=== PATIENT | male | born 1950 | race Caucasian/White ===

== ENCOUNTER 2018-07-10 14:50 | Observation (INO) | payer OTHER, MEDICARE ==
[~2018-07-10] VITALS: Ht 177.8 cm; Wt 83.9 kg
[2018-07-10 15:29] LABS: ABSOLUTE BASOPHIL COUNT 0 /CUMM (0.0-0.2); ABSOLUTE EOSINOPHIL COUNT 0.1 /CUMM (0.0-0.7); ABSOLUTE GRANULOCYTE CT 5.6 /CUMM (1.4-6.5); ABSOLUTE LYMPH COUNT 0.9 /CUMM (1.2-3.4); ABSOLUTE MONOCYTE COUNT 0.3 /CUMM (0.10-0.60); BASOPHIL % 0.2 % (0.0-2.0); EOSINOPHIL % 1.7 % (0-5); GRANULOCYTE % 80.3 % (42.2-75.2); HEMATOCRIT 38.3 % (42-52); MEAN CORPUSCULAR HGB 34.2 PG (27.0-31.0); MEAN CORPUSCULAR VOLUME 97.7 FL (80.0-94.0); MEAN PLATELET VOLUME 8.3 FL (7.4-10.4); PLATELET COUNT 189 /CUMM (130-400); RBC DISTRIBUTION WIDTH 12.6 % (11.5-14.5); RED BLOOD CELL CT 3.92 /CUMM (4.70-6.10)
--- NOTE | 2018-07-10 15:40 | ED AMS/SEIZURE/WEAK/DIZZY ---
History of Present Illness General Chief Complaint: General Adult Stated Complaint: LOW HEART RATE , DIZZY X 2 DAYS Source: patient, family Exam Limitations: no limitations Vital Signs & Intake/Output Vital Signs & Intake/Output Vital Signs Date Time Temp Pulse Resp B/P B/P Pulse O2 O2 Flow FiO2 Mean Ox Delivery Rate 07/10 1955 98.4 49 16 163/80 99 Room Air 07/10 1712 50 16 147/78 97 Room Air 07/10 1652 58 16 99 Room Air 07/10 1613 56 120/84 07/10 1534 Room Air 07/10 1503 98.8 60 16 128/78 97 Room Air Allergies Coded Allergies: No Known Allergies (07/10/18) Reconcile Medications Aspirin (Aspirin*) 81 MG TAB.CHEW 1 TAB PO DAILY HEART HEALTH (Reported) Calcium Carbonate/Vitamin D3 (Caltrate 600 + D Tablet) 600 MG-800 TABLET 1 TAB PO DAILY SUPPLEMENT (Reported) Cholecalciferol (Vitamin D3) (Vitamin D3) 400 UNIT TABLET 1 TAB PO DAILY VITAMIN SUPPORT (Reported) Inulin/Chromium Picolinate (Fiber Gummies) 2 GRAM-100 MCG TAB.CHEW 1 CAP PO DAILY SUPPLEMENT (Reported) Losartan (Cozaar) 100 MG TABLET 1 TAB PO DAILY HEART (Reported) Multivit-Min/FA/Lycopen/Lutein (Centrum Silver Tablet) 0.4 MG-300 MCG-250 MCG TABLET 1 TAB PO DAILY VITAMIN SUPPORT (Reported) Oxybutynin Chloride (Ditropan XL) 10 MG TAB.ER.24 1 TAB PO DAILY UNKNOWN ( Reported) Tamsulosin HCl (Flomax) 0.4 MG CAP.ER.24H 1 CAP PO DAILY PROSTATE (Reported) Triage Note: PT STATES THAT HE WAS GOLFING YESTERDAY WHEN HIS LEGS BECAME WEEK AND HE FELT LIKE HE WAS GOING TO PASS OUT, STATES THAT HR WAS AROUND 54 AND BP 100/50. STATES THAT HE WAS DRINKING PLENTY OF FLUIDS, WOKE THIS AM AND STILL FELT LIGHT HEADED AND HR WAS 47 AND SKIPPING BEATS. DENIES CP/SOB Triage Nurses Notes Reviewed? yes HPI: Patient presents for evaluation of weakness and dizziness that began over yesterday and today. The patient is currently in a preoperative evaluation (he will be having a cystoscopy). He was evaluated by his nurse practitioner at his primary care doctor's office 2 days ago when his heart rate was noted to be in the mid 50s. He felt particularly weak and dizzy yesterday, truncating his usual recreational golfed only 7 holes. Patient's heart rate and blood pressure seemed relatively stable then. The patient felt particularly lightheaded today and his heart rate dipped into the upper 40s prompting a call to his primary care physician. He was told by his primary care physician's office to go to the emergency department. While at rest the patient offers no complaint. He recently was changed from valsartan until losartan and has also begun taking Ditropan and Flomax because of a history of prostate cancer. Past History Travel History Traveled to [place] past 21 day No Medical History Any Pertinent Medical History? see below for history Neurological: NONE Cardiovascular: hypertension Gastrointestinal: NONE Hepatic: NONE Renal: NONE Musculoskeletal: NONE Psychiatric: NONE Endocrine: NONE Blood Disorders: DVT Cancer(s): prostate cancer SENIOR CASE MANAGER/Reproductive: NONE Surgical History Surgical History: non-contributory Psychosocial History What is your primary language Uzbek Tobacco Use: Never used ETOH Use: denies use Illicit Drug Use: denies illicit drug use Family History Hx Contributory? No Review of Systems Review of Systems Constitutional: Reports: no symptoms. EENTM: Reports: no symptoms. Respiratory: Reports: no symptoms. Cardiovascular: Reports: see HPI. GI: Reports: no symptoms. Genitourinary: Reports: no symptoms. Musculoskeletal: Reports: no symptoms. Skin: Reports: no symptoms. Neurological/Psychological: Reports: no symptoms. Hematologic/Endocrine: Reports: no symptoms. Immunologic/Allergic: Reports: no symptoms. All Other Systems: Reviewed and Negative Physical Exam Physical Exam General Appearance: SEE BELOW Comments: Gen.: Well-nourished, well-developed, no acute respiratory distress. Head: Normocephalic, atraumatic. Eyes: Normal inspection bilaterally Ears: Normal inspection bilaterally Nose: Normal inspection Throat/mouth : Moist mucosa Neck: Supple, full range of motion, no goiter Heart: Regular rate and rhythm, no murmurs rubs or gallops Lungs: Clear to auscultation bilaterally with normal air entry Chest: Nontender Back: Normal range of motion Abdomen: Soft, nontender, nondistended, normal bowel sounds Extremities: Normal range of motion grossly, equal radial pulses, no cyanosis clubbing or edema Neurologic: Cranial nerves grossly intact, speech is clear Skin: warm and dry Psychiatric: Calm, cooperative, no apparent delusions or hallucinations Core Measures ACS in differential dx? No CVA/TIA Diagnosis No Sepsis Present: No Sepsis Focused Exam Completed? No Progress Differential Diagnosis: arrythmia, anemia, electrolyte imbalance, hypoglycemia, hypoxia Plan of Care: Orders Procedure Date/time Status Heart Healthy Diet 07/[address] in observation 07/10 2016 Active Misc Message 07/10 2016 Active ED Holding Orders 07/10 2016 Active Vital Signs 07/10 2016 Active Code Status 07/10 2016 Active Patient Data 07/10 1932 Active MISTAKE 07/10 1539 Active THYROID STIMULATING HORMONE 07/10 1508 Complete TROPONIN LEVEL 07/10 1508 Complete MAGNESIUM 07/10 1508 Complete COMPREHENSIVE METABOLIC PANEL 07/10 1508 Complete CBC WITHOUT DIFFERENTIAL 07/10 1508 Complete EKG 07/10 1507 Active Laboratory Tests 07/10/18 1515: Anion Gap 6, Estimated GFR > 60, BUN/Creatinine Ratio 36.3 H, Glucose 86, Calcium 9.2, Magnesium 1.9, Total Bilirubin 0.7, AST 23, ALT 35, Alkaline Phosphatase 50, Troponin I < 0.01, Total Protein 7.0, Albumin 3.9, Globulin 3.1, Albumin/Globulin Ratio 1.3, TSH 0.539, CBC w Diff NO MAN DIFF REQ, RBC 3.92 L, MCV 97.7 H, MCH 34.2 H, MCHC 35.0, RDW 12.6, MPV 8.3, Gran % 80.3 H, Lymphocytes % 12.9 L, Monocytes % 4.9, Eosinophils % 1.7, Basophils % 0.2, Absolute Granulocytes 5.6, Absolute Lymphocytes 0.9 L, Absolute Monocytes 0.3, Absolute Eosinophils 0.1, Absolute Basophils 0 Initial ED EKG: SINUS BRADYCARDIA WITH A HEART RATE OF 54, NONSPECIFIC LATERAL st SEGMENT CHANGES Comments: 07/10/2018 6:47:20 PM patient's case discussed with Dr. TRIVEDI who agrees with discussing this patient's case with the bone density technician. Ben/duyen Ibarra, including patient's laboratory investigations EKG, orthostatic vital testing and clinical course, who feels pt could be further evaluated at outpt. Dr. Ibarra will be available in the [place] office tomorrow. Departure Departure Disposition: HOME OR SELF CARE Condition: Stable Clinical Impression Primary Impression: Bradycardia Referrals: Phillip Soto MD (PCP/Family) Additional Instructions: Please follow-up with Dr. Ibarra's office tomorrow. Avoid exertion. Notify your primary care doctor of this emergency department visit and treatment plan. Return if any concerns or sudden worsening. Please note that there might be incidental findings in your evaluation that are unrelated to the current emergency department visit. Please notify your primary care doctor about this emergency department visit in order to obtain and review all of the testing performed so that these incidental findings can be monitored as needed. If you had an x-ray performed, please understand that some fractures or other findings may not be seen on the initial set of x-rays. If your symptoms persist you might need a repeat set of x-rays to check for such a fracture. If you had a laceration evaluated, please understand that foreign bodies such as glass or wood may not be visible to the naked eye or on plain x-rays. If the wound becomes red, swollen, increasingly more painful or if there is any drainage from the wound, please have it reevaluated by a physician for the possibility of a retained foreign body. If you're unable to follow up as outlined in the discharge instructions please return to the emergency department. Thank you for choosing the [facility] Emergency Department for your care. It was a pleasure to serve you today. Mauricio White M.D. [facility] Departure Forms: Customer Survey General Discharge Information Observation Note Spoke With: Oswaldo Mckay MD Patient In: Non-ED OBS Care Area Rationale for Observation: My rational for observation is as follows: Patient is experiencing symptomatic bradycardia with a heart rate as low as 50 bpm documented here in the emergency department and as low as 48 bpm as documented by his at home. The patient is not currently taking any "rate controlling" medications. Given the patient's symptoms (dizziness and fatigue) I feel he is a poor candidate for outpatient management. I feel the patient would have great difficulty in complying with outpatient treatment and could potentially place himself at risk for fall with injury. He could very likely return in worse clinical condition. In addition since the cause of his bradycardia is unclear it is difficult to predict if he will have any additional episodes of bradycardia placing him at risk of hypotension syncope chest pain and shortness of breath. Given this I feel the patient requires observation with continuous cardiac monitoring, serial EKG and troponin determinations and cardiology consultation for echocardiogram and stress testing.
[2018-07-10] MEDS ORDERED: FLOMAX0.4 M1 PO (15:41)
[2018-07-10] MEDS ORDERED: COZAAR100 M1 PO (15:41)
[2018-07-10] MEDS ORDERED: DITROPAN XL10 M1 PO (15:41)
[2018-07-10] MEDS ORDERED: ASPIRIN81 M4 PO (15:42)
[2018-07-10] MEDS ORDERED: FIBER GUMMIES1 EACH PO (15:42)
[2018-07-10] MEDS ORDERED: CENTRUM SILVER1 EAC3 PO (15:43)
[2018-07-10] MEDS ORDERED: CALTRATE 600 +1 EACH PO (15:43)
[2018-07-10] MEDS ORDERED: VITAMIN D3400 UNI1 PO (15:44)
[2018-07-10 21:00] VITALS: BP 116/72
--- NOTE | 2018-07-10 21:45 | History & Physical ---
See Addendum Sourav Alvarez 07/10/18 2144: General Information and HPI MD Statement: I have seen and personally examined QIAN PRO and documented this H&P. The patient is a 68 year old M who presented with a patient stated chief complaint of WEAKNESS, FATIGUE, LOW HEART RATE. Source of Information: patient, family Exam Limitations: no limitations History of Present Illness: Patient is a 68-year-old male with past medical history of hypertension, prior DVT, and prostate cancer currently receiving Lupron who presented to the ED following episodes of weakness and bradycardia. Of note, patient's is a retired nurse, and states that the patient also may have had missed heartbeats when she was taking his pulse. The patient was in his normal state of health, which which included a mild worsening weakness over the past 3 months, until yesterday when he was out playing golf. At that time he experienced a weakness and dizziness that caused his golf game short and made him return home. He denies experiencing headache/ chest pain/shortness of breath. The patient was also recently seen by his PCP in evaluation for a cystoscopy, at which time his HR was low (50s), and he was instructed to discontinue his losartan. In the ED, patient was found by EKG to have sinus bradycardia ~50-55bpm, with no complaints at rest. Allergies/Medications Allergies: Coded Allergies: No Known Allergies (07/10/18) Home Med list Aspirin (Aspirin*) 81 MG TAB.CHEW 1 TAB PO DAILY HEART HEALTH (Reported) Calcium Carbonate/Vitamin D3 (Caltrate 600 + D Tablet) 600 MG-800 TABLET 1 TAB PO DAILY SUPPLEMENT (Reported) Cholecalciferol (Vitamin D3) (Vitamin D3) 400 UNIT TABLET 1 TAB PO DAILY VITAMIN SUPPORT (Reported) Inulin/Chromium Picolinate (Fiber Gummies) 2 GRAM-100 MCG TAB.CHEW 1 CAP PO DAILY SUPPLEMENT (Reported) Losartan (Cozaar) 100 MG TABLET 1 TAB PO DAILY HEART (Reported) Multivit-Min/FA/Lycopen/Lutein (Centrum Silver Tablet) 0.4 MG-300 MCG-250 MCG TABLET 1 TAB PO DAILY VITAMIN SUPPORT (Reported) Oxybutynin Chloride (Ditropan XL) 10 MG TAB.ER.24 1 TAB PO DAILY UNKNOWN ( Reported) Tamsulosin HCl (Flomax) 0.4 MG CAP.ER.24H 1 CAP PO DAILY PROSTATE (Reported) Compliance With Home Meds: GOOD Past History Travel History Traveled to [place] past 21 day No Medical History Neurological: NONE Cardiovascular: hypertension Gastrointestinal: NONE Hepatic: NONE Renal: NONE Musculoskeletal: NONE Psychiatric: NONE Endocrine: NONE Blood Disorders: DVT Cancer(s): prostate cancer MANAGER COUNTRY/Reproductive: NONE Surgical History Surgical History: non-contributory Past Family/Social History Family History Relations & Conditions if any MOTHER FH: myocardial infarction, Onset: 60+. Psychosocial History Where do you live? Home Who Do You Live With? spouse Primary Language: Tongan ETOH Use: denies use Illicit Drug Use: denies illicit drug use Functional Ability ADLs Independent: dressing, eating, toileting, bathing. Ambulation: independent IADLs Independent: shopping, housework, finances, food prep, telephone, transportation , medication admin. Employment History Employment Retired Review of Systems Review of Systems Constitutional: Reports: see HPI. Cardiovascular: Denies: chest pain, orthopena, syncope. Respiratory: Denies: short of breath, wheezing. All Other Systems: Reviewed and Negative Exam & Diagnostic Data Last 24 Hrs of Vital Signs/I&O Vital Signs Date Time Temp Pulse Resp B/P B/P Pulse O2 O2 Flow FiO2 Mean Ox Delivery Rate 07/10 2116 98.0 62 18 159/74 98 Room Air 07/10 2100 98.5 58 16 116/72 95 Room Air 07/10 1955 98.4 49 16 163/80 99 Room Air 07/10 1712 50 16 147/78 97 Room Air 07/10 1652 58 16 99 Room Air 07/10 1613 56 120/84 07/10 1534 Room Air 07/10 1503 98.8 60 16 128/78 97 Room Air Intake & Output 07/11 0800 07/11 0000 07/10 1600 Intake Total 500 Output Total Balance 500 Intake, IV 500 Patient 185 lb 185 lb Weight Physical Exam General Appearance Alert, Oriented X3, Cooperative, No Acute Distress Skin No Rashes, No Breakdown, No Significant Lesion Skin Temp/Moisture Exam: Warm/Dry HEENT Atraumatic, PERRLA, EOMI Neck Supple, No JVD, No thryomegaly Lymphatic Cervical nl Cardiovascular Regular Rate, Normal S1, Normal S2, No Murmurs, Gallops, Rubs Lungs Clear to Auscultation, Normal Air Movement Abdomen Normal Bowel Sounds, Soft, No Tenderness, No Hepatospenomegaly, No Masses Neurological Normal Speech, Strength at 5/5 X4 Ext, Normal Tone, Sensation Intact, Cranial Nerves 3-12 NL Extremities No Clubbing, No Cyanosis, No Edema Last 24 Hrs of Labs/Herman: Laboratory Tests 07/10/18 2315: Troponin I < 0.01 07/10/18 1515: Anion Gap 6, Estimated GFR > 60, BUN/Creatinine Ratio 36.3 H, Glucose 86, Calcium 9.2, Magnesium 1.9, Total Bilirubin 0.7, AST 23, ALT 35, Alkaline Phosphatase 50, Troponin I < 0.01, Total Protein 7.0, Albumin 3.9, Globulin 3.1, Albumin/Globulin Ratio 1.3, TSH 0.539, CBC w Diff NO MAN DIFF REQ, RBC 3.92 L, MCV 97.7 H, MCH 34.2 H, MCHC 35.0, RDW 12.6, MPV 8.3, Gran % 80.3 H, Lymphocytes % 12.9 L, Monocytes % 4.9, Eosinophils % 1.7, Basophils % 0.2, Absolute Granulocytes 5.6, Absolute Lymphocytes 0.9 L, Absolute Monocytes 0.3, Absolute Eosinophils 0.1, Absolute Basophils 0 Microbiology 07/10 2143 URINE ROUT: Urine Culture - COLB Diagnostic Data EKG Results Sinus bradycardia @54bpm, nonspecific lateral ST cdhanges CXR Results Unremarkable examination Assessment/Plan Assessment: 68 year old male patient with pmh of prostate cancer on Lupron, hypertension, and dvt who presented to the ED with concerns of weakness, fatigue, and slow heart rate. Problem list/plan: New onset bradycardia: -Consider discontinuation of Lupron after discharge Hypertension -Patient has discontinued his losartan -Continue to monitor BP with vitals Prostate cancer -Hold patient's home oxybutinin and Flomax DVT Prophylaxis: Subcu lovenox and ALPs Heart healthy diet Patient is full code As Ranked By This Provider Problem List: 1. Bradycardia 2. Prostate cancer 3. Hypertension Core Measures/Misc (08/11) Acute Coronary Syndrome ACS Diagnosis: No Congestive Heart Failure Congestive Heart Failure Diagnosis No Cerebrovascular Accident CVA/TIA Diagnosis: No VTE (View Protocol) VTE Risk Factors Age>40 No Mechanical VTE Prophylaxis d/t N/A MechProphylax Ordered No VTE Pharm Prophylaxis d/t NA PharmProphylax ordered Sepsis (View protocol) Sepsis Present: No If YES complete Sepsis Event Note If YES complete Sepsis Event Note Chip Conti MD 07/11/18 0200: General Information and HPI MD Statement: I have seen and personally examined QIAN PRO and documented this H&P. The patient is a 68 year old M who presented with a patient stated chief complaint of weakness, fatigue, and feeling lightheaded. Source of Information: patient, family Exam Limitations: no limitations History of Present Illness: 68 year old male with PMH significant for HTN, remote h/o LE DVT related to trauma, and metastatic prostate cancer diagnosed on screening PSA 1.8->14.8 in one year, followed by biopsy, high Giuliana score, extending beyond the prostate capsule into lymph nodes and rectal fascia managed with radiation therapy 01/20- 03/24/2018 and Leupron q3 months x 3 treatments presents with complaints of several months of progressive weakness, fatigue, which have acutely worsened with feeling lightheaded. The patient is normally quite physically active and plays golf around 5 days a week. He has had progressive fatigue and has been walking nine holes feeling extremely tired and using a golf cart for the remaining nine holes. His weight and appetite have been okay. He has been trying to drink more fluids because it is hot outside and doesn't appear to be dehydrated. Today he had to stop playing golf after seven holes and tell his friends to go on without him. He sat down and gotten driven to the proshop where he sat for sometime until he felt well enough to drive home. His noted that his heart rate dipped into the high 40s and 50s at home. They called his primary care physician who advised them to go to the emergency department for evaluation. He is a patient of Dr. Ibarra's (urology) in [place]. He has had numerous urological issues with his recent diagnosis and treatment of prostate cancer. He was having pain, urinary frequency, urgency, dysuria, and incontinence. He was treated for UTI's, but ultimately cultures were negative. He had trials with pyridium and meloxicam for pain. He was retaining urine and having overflow incontinence with small volume and pain and was started on flomax and ditropan. He was last seen by the urologist in May and flomax was made bid from daily and ditropan added, which was significantly improved his urinary symptoms. He did develop some hematuria and passed some clots and was scheduled for an outpatient cystoscopy although the hematuria has resolved for the past month. He had a preoperative evaluation and the bradycardia was addressed. His noticed that his heart rate has been low and was concerned that this might be contributing to his symptoms. She is a retired nurse and thinks that he has had dropped beats. He had outpatient Lyme testing performed last week that was negative, 1 IgG band positive only. His valsartan was recently changed to losartan because of the recall but he just stopped it due to his recent symptoms. He has had no chest pain, dypsnea, syncope, palpitations, nausea, vomiting, cough, or diarrhea. He endorses only back, hip, and knee pain on review of systems. In the ED, his labs were notable only for a mild anemia and elevated BUN. He was given 500cc NS and placed under observation status on telemetry for possible symptomatic bradycardia. Allergies/Medications Compliance With Home Meds: GOOD Past History Medical History Cardiovascular: hypertension Blood Disorders: DVT (trauma) Cancer(s): prostate cancer Surgical History Surgical History: appendectomy Past Family/Social History Psychosocial History Primary Language: Tongan Smoking Status: Never Smoked ETOH Use: occasional use Illicit Drug Use: denies illicit drug use Review of Systems Review of Systems Constitutional: Reports: malaise, weakness. Denies: chills, fever. EENTM: Reports: no symptoms. Cardiovascular: Denies: chest pain, palpitations, syncope. Respiratory: Denies: cough, short of breath. GI: Denies: abdominal pain, diarrhea, bowel incontinence, nausea, vomiting. Genitourinary: Reports: dysuria, frequency, hematuria, pain, urgency. Musculoskeletal: Reports: back pain, joint pain. Skin: Reports: no symptoms. Neurological/Psychological: Reports: weakness. Hematologic/Endocrine: Reports: no symptoms. Immunologic/Allergic: Reports: no symptoms. All Other Systems: Reviewed and Negative Exam & Diagnostic Data Last 24 Hrs of Vital Signs/I&O Vital Signs Date Time Temp Pulse Resp B/P B/P Pulse O2 O2 Flow FiO2 Mean Ox Delivery Rate 07/10 2116 98.0 62 18 159/74 98 Room Air 07/10 2100 98.5 58 16 116/72 95 Room Air 08/16 1955 98.4 49 16 163/80 99 Room Air 07/10 1712 50 16 147/78 97 Room Air 07/10 1652 58 16 99 Room Air 07/10 1613 56 120/84 07/10 1534 Room Air 07/10 1503 98.8 60 16 128/78 97 Room Air Intake & Output 07/11 0800 07/11 0000 07/10 1600 Intake Total 500 Output Total Balance 500 Intake, IV 500 Patient 83.915 kg 83.915 kg Weight Physical Exam General Appearance Alert, Oriented X3, Cooperative, No Acute Distress Skin No Rashes, No Breakdown, No Significant Lesion HEENT Atraumatic, PERRLA, EOMI Neck Supple, No JVD Cardiovascular Normal S1, Normal S2, No Murmurs, mild bradycardia Lungs Clear to Auscultation, Normal Air Movement Abdomen Normal Bowel Sounds, Soft, No Tenderness, No Masses Neurological Normal Speech, Strength at 5/5 X4 Ext, Normal Tone, Cranial Nerves 3-12 NL Extremities No Clubbing, No Cyanosis, No Edema, Normal Pulses Last 24 Hrs of Labs/Herman: Laboratory Tests 07/10/18 2315: Troponin I < 0.01 07/10/18 1515: Anion Gap 6, Estimated GFR > 60, BUN/Creatinine Ratio 36.3 H, Glucose 86, Calcium 9.2, Magnesium 1.9, Total Bilirubin 0.7, AST 23, ALT 35, Alkaline Phosphatase 50, Troponin I < 0.01, Total Protein 7.0, Albumin 3.9, Globulin 3.1, Albumin/Globulin Ratio 1.3, TSH 0.539, CBC w Diff NO MAN DIFF REQ, RBC 3.92 L, MCV 97.7 H, MCH 34.2 H, MCHC 35.0, RDW 12.6, MPV 8.3, Gran % 80.3 H, Lymphocytes % 12.9 L, Monocytes % 4.9, Eosinophils % 1.7, Basophils % 0.2, Absolute Granulocytes 5.6, Absolute Lymphocytes 0.9 L, Absolute Monocytes 0.3, Absolute Eosinophils 0.1, Absolute Basophils 0 Microbiology 07/10 2143 URINE ROUT: Urine Culture - COLB Diagnostic Data EKG Results sinus bradycardia CXR Results No significant abnormality is noted involving the heart, lungs, mediastinum, bony thorax or soft tissues. Assessment/Plan Assessment: 68 year old male with PMH significant for HTN, remote h/o LE DVT related to trauma, and metastatic prostate cancer diagnosed on screening PSA 1.8->14.8 in one year, followed by biopsy, high Charlotte score, extending beyond the prostate capsule into lymph nodes and rectal fascia managed with radiation therapy 01/20- 03/24/2018 and Leupron q3 months x 3 treatments presents with complaints of several months of progressive weakness, fatigue, which have acutely worsened with feeling lightheaded. Symptomatic bradycardia: Complaints of progressive weakness, fatigue, and new lightheadedness Given 500cc NS in the ED Observe on telemetry Sinus bradycardia without any evidence of heart block on initial EKG No negative chronotropic medications Losartan had been stopped, and ditropan and flomax would be expected to cause tachycardia either reflex or from anticholinergic activity His weakness and fatigue could have alternative explanations from his malignancy or the treatment with radiation and leupron rather than from his heart rate which is only midly decreased Cardiology consultation Evaluate with troponins and EKGs to evaluate for heart block and myocardial ischemia Consider echocardiogram Check urinalysis and culture to evaluate for infection Lyme testing was just performed as an outpatient last week and won't be repeat now Thyroid function wnl HTN: Systolic blood pressure 120-150 Losartan on hold at this time Prostate cancer: Follow up with Dr. Ibarra as an outpatient Hold flomax and ditropan for now and monitor HR off all medications on telemetry Heart healthy diet DVT ppx-lovenox 40mg sc Full code As Ranked By This Provider Problem List: 1. Hypertension 2. Prostate cancer 3. Bradycardia Core Measures/Misc (08/11) Acute Coronary Syndrome ACS Diagnosis: No Congestive Heart Failure Congestive Heart Failure Diagnosis No Cerebrovascular Accident CVA/TIA Diagnosis: No VTE (View Protocol) VTE Risk Factors Age>40 No Mechanical VTE Prophylaxis d/t N/A MechProphylax Ordered No VTE Pharm Prophylaxis d/t NA PharmProphylax ordered Sepsis (View protocol) Sepsis Present: No If YES complete Sepsis Event Note If YES complete Sepsis Event Note Nely IBARRAOswaldo 07/11/18 0352: General Information and HPI Statement: I have seen and personally examined QIAN PRO and documented this H&P. The patient is a 68 year old M who presented with a patient stated chief complaint of []. Source of Information: patient Past History Medical History Cardiovascular: hypertension Blood Disorders: DVT Surgical History Surgical History: appendectomy Past Family/Social History Psychosocial History Smoking Status: Never Smoked ETOH Use: occasional use Illicit Drug Use: denies illicit drug use Employment History Employment Retired Review of Systems Review of Systems Constitutional: Reports: see HPI. Exam & Diagnostic Data Last 24 Hrs of Vital Signs/I&O Vital Signs Date Time Temp Pulse Resp B/P B/P Pulse O2 O2 Flow FiO2 Mean Ox Delivery Rate 07/106 98.0 62 18 159/74 98 Room Air 07/10 2100 98.5 58 16 116/72 95 Room Air 07/10 1955 98.4 49 16 163/80 99 Room Air 07/10 1712 50 16 147/78 97 Room Air 07/10 1652 58 16 99 Room Air 07/10 1613 56 120/84 07/10 1534 Room Air 07/10 1503 98.8 60 16 128/78 97 Room Air Intake & Output 07/11 0800 08 0000 07/10 1600 Intake Total 500 Output Total Balance 500 Intake, IV 500 Patient 185 lb 185 lb Weight Physical Exam General Appearance Alert, Oriented X3, Cooperative, No Acute Distress Skin No Rashes, No Breakdown, No Significant Lesion Skin Temp/Moisture Exam: Cool/Dry Sepsis Skin Exam (color): Normal for Ethnicity HEENT Atraumatic, PERRLA, EOMI Neck Supple, No JVD Lymphatic Axillary nl, Cervical nl Cardiovascular Regular Rate, Normal S1, Normal S2, No Murmurs Lungs Clear to Auscultation, Normal Air Movement Abdomen Normal Bowel Sounds, Soft, No Tenderness Neurological Normal Gait, Normal Speech Extremities No Clubbing, No Cyanosis, No Edema Sepsis Peripheral Pulse Location: Dorsalis Pedis Sepsis Peripheral Pulse Exam: Normal Sepsis Cap Refill Exam: <2 Sec Last 24 Hrs of Labs/Herman: Laboratory Tests 07/10/18 2315: Troponin I < 0.01 07/10/18 1515: Anion Gap 6, Estimated GFR > 60, BUN/Creatinine Ratio 36.3 H, Glucose 86, Calcium 9.2, Magnesium 1.9, Total Bilirubin 0.7, AST 23, ALT 35, Alkaline Phosphatase 50, Troponin I < 0.01, Total Protein 7.0, Albumin 3.9, Globulin 3.1, Albumin/Globulin Ratio 1.3, TSH 0.539, CBC w Diff NO MAN DIFF REQ, RBC 3.92 L, MCV 97.7 H, MCH 34.2 H, MCHC 35.0, RDW 12.6, MPV 8.3, Gran % 80.3 H, Lymphocytes % 12.9 L, Monocytes % 4.9, Eosinophils % 1.7, Basophils % 0.2, Absolute Granulocytes 5.6, Absolute Lymphocytes 0.9 L, Absolute Monocytes 0.3, Absolute Eosinophils 0.1, Absolute Basophils 0 Microbiology 07/103 URINE ROUT: Urine Culture - COLB Core Measures/Misc (08/11) Sepsis (View protocol) If YES complete Sepsis Event Note If YES complete Sepsis Event Note Attending MD Review Statement Attending Statement Attending MD Statement: examined this patient, discuss w/resident/PA/MACHINE EDGE BANDER, agreed w/resident/PA/MACHINE EDGE BANDER, amended to note Attending Assessment/Plan: This patient is a 68 year old male with a significant PMH for HTN, remote h/o LE DVT related to trauma, and metastatic prostate cancer diagnosed on screening PSA 1.8->14.8 in one year, followed by biopsy, high Giuliana score, extending beyond the prostate capsule into lymph nodes and rectal fascia managed with radiation therapy 01/20-03/24/2018 and Leupron q3 months x 3 treatments presents with complaints of several months of progressive weakness, fatigue, which have acutely worsened with feeling lightheaded. He has had progressive fatigue and has been walking nine holes feeling extremely tired and using a golf cart for the remaining nine holes. Today he had to stop playing golf after seven holes and tell his friends to go on without him. He sat down and gotten driven to [place] where he sat for sometime until he felt well enough to drive home. His noted that his heart rate dipped into the high 40s and 50s at home. His noticed that his heart rate has been low and was concerned that this might be contributing to his symptoms. She brought him to the ED and upon evaluation he was noted to have Stable VS, minor lab abnormalities, CXR unremarkable, and EKG sinus bradycardia. The patient will be admitted to telemetry for weakness and new onset afib. Monitor on telemetry, rule out ACS, follow up consults.
--- NOTE | 2018-07-10 23:32 | RADIOLOGY REPORT ---
EXAMINATION: XR PORTABLE CHEST CLINICAL INFORMATION: Bradycardia. COMPARISON: None TECHNIQUE: Portable frontal view of the chest was obtained. 9:53 PM FINDINGS: No significant abnormality is noted involving the heart, lungs, mediastinum, bony thorax or soft tissues. IMPRESSION: Unremarkable examination.
[2018-07-11 06:57] VITALS: BP 146/84
--- NOTE | 2018-07-11 07:19 | PN- Housestaff ---
MonchoLilia العراقيesh 07/11/18 0719: Subjective Follow-up For: Symptomatic bradycardia Subjective: Overnight telemetry showed normal sinus rhythm up to 64 and sinus bradycardia 43 -56. Patient sitting comfortably in bed. No events per nursing. He denies any new complaints. Review of Systems Constitutional: Reports: see HPI. Objective Last 24 Hrs of Vital Signs/I&O Vital Signs Date Time Temp Pulse Resp B/P B/P Pulse O2 O2 Flow FiO2 Mean Ox Delivery Rate 07/11 1401 64 120/70 07/11 0657 98.7 52 18 146/84 96 Room Air 07/10 2116 98.0 62 18 159/74 98 Room Air 07/10 2100 98.5 58 16 116/72 95 Room Air 07/10 1955 98.4 49 16 163/80 99 Room Air 07/10 1712 50 16 147/78 97 Room Air 07/10 1652 58 16 99 Room Air 07/10 1613 56 120/84 07/10 1534 Room Air 07/10 1503 98.8 60 16 128/78 97 Room Air Intake & Output 07/11 1600 07/11 0800 07/11 0000 Intake Total Output Total Balance Patient 185 lb Weight Physical Exam General Appearance: Alert, Oriented X3, Cooperative, No Acute Distress Sepsis Skin Exam (color): Normal for Ethnicity HEENT: Atraumatic, EOMI Neck: Supple Cardiovascular: Normal S1, Normal S2 Lungs: Clear to Auscultation Abdomen: Normal Bowel Sounds, Soft, No Tenderness Extremities: No Edema Current Medications: Current Medications Sig/Luis Start time Last Medication Dose Route Stop Time Status Admin Acetaminophen 650 MG Q6P PRN 07/10 2145 AC PO Aspirin 81 MG DAILY 07/11 900 DC PO Enoxaparin Sodium 40 MG DAILY 07/11 09 AC SC Losartan Potassium 100 MG DAILY 07/11 900 AC PO Sodium Chloride 500 ML BOLUS ONE 07/10 1545 DC 07/10 IV 07/10 1644 1558 Tamsulosin HCl 0.4 MG DAILY 07/11 900 AC PO Last 24 Hrs of Lab/Herman Results Last 24 Hrs of Labs/Mics: Laboratory Tests 07/11/18 0725: Urine Color YEL, Urine Clarity HAZY H, Urine pH 6.0, Ur Specific [place] 1.020, Urine Protein NEG, Urine Ketones NEG, Urine Nitrite NEG, Urine Bilirubin NEG, Urine Urobilinogen 0.2, Ur Leukocyte Esterase SMALL H, Ur Microscopic SEDIMENT EXAMINED, Urine RBC RARE, Urine WBC 5-10 H, Ur Epithelial Cells RARE, Urine Mucus RARE, Urine Hemoglobin SMALL H, Urine Glucose NEG 07/11/18 0621: Anion Gap 7, Estimated GFR > 60, BUN/Creatinine Ratio 28.8 H, Magnesium 2.0, Troponin I < 0.01, CBC w Diff NO MAN DIFF REQ, RBC 3.75 L, MCV 98.2 H, MCH 33.7 H, MCHC 34.3, RDW 12.8, MPV 8.8, Gran % 77.1 H, Lymphocytes % 14.8 L, Monocytes % 5.1, Eosinophils % 2.6, Basophils % 0.4, Absolute Granulocytes 4.2, Absolute Lymphocytes 0.8 L, Absolute Monocytes 0.3, Absolute Eosinophils 0.1, Absolute Basophils 0 07/10/18 2315: Troponin I < 0.01 07/10/18 1515: Anion Gap 6, Estimated GFR > 60, BUN/Creatinine Ratio 36.3 H, Glucose 86, Calcium 9.2, Magnesium 1.9, Total Bilirubin 0.7, AST 23, ALT 35, Alkaline Phosphatase 50, Troponin I < 0.01, Total Protein 7.0, Albumin 3.9, Globulin 3.1, Albumin/Globulin Ratio 1.3, TSH 0.539, CBC w Diff NO MAN DIFF REQ, RBC 3.92 L, MCV 97.7 H, MCH 34.2 H, MCHC 35.0, RDW 12.6, MPV 8.3, Gran % 80.3 H, Lymphocytes % 12.9 L, Monocytes % 4.9, Eosinophils % 1.7, Basophils % 0.2, Absolute Granulocytes 5.6, Absolute Lymphocytes 0.9 L, Absolute Monocytes 0.3, Absolute Eosinophils 0.1, Absolute Basophils 0 Microbiology 07/11 0725 URINE ROUT: Urine Culture - RECD Assessment/Plan Assessment: Patient is a 68-year-old male with past medical history of hypertension, prior DVT, and prostate cancer s/p radiation, currently receiving Lupron, who presented to the ED following episodes of weakness and bradycardia. Of note, patient's is a retired nurse, and states that the patient also may have had missed heartbeats when she was taking his pulse. The patient states he only had a mild worsening weakness over the past 3 months, until the day before admission while playing golf, he experienced a weakness and dizziness that made him return home. He denies experiencing DHALIWAL, CP, SOB. The patient was also recently seen by his PCP in evaluation for a cystoscopy, at which time his HR was low (50s), and he was instructed to discontinue his losartan. In the ED, patient was found by EKG to have sinus bradycardia ~50-55bpm, with no complaints at rest. Problem List / Plan: #Symptomatic Bradycardia - Per cardio: Exercise stress ECG was performed today -there were no ischemic changes and he demonstrated good chronotropic competence. Patient instructed to follow with cardiology outpatient to obtain transthoracic echocardiogram to r/o structural cardiac disease and try an outpatient nuclear monitoring technician. #Prostate cancer - Continue Lupron Problem List: 1. Bradycardia 2. Prostate cancer Pain Ratin Pain Location: NA Pain Goal: Remain pain free Pain Plan: Per pathway Tomorrow's Labs & Rationales: None Sam IBARRA,Eula 07/11/18 1013: Attending MD Review Statement Attending Statement Attending MD Statement: examined this patient, discuss w/resident/PA/DANCER OR CHOREOGRAPHER, agreed w/resident/PA/DANCER OR CHOREOGRAPHER, discussed with family, reviewed EMR data (avail), discussed with nursing, discussed with case mgmt, reviewed images Attending Assessment/Plan: 68-year-old male past medical history of prostate CA, BPH and hypertension here with symptomatic bradycardia. He was feeling weak and his checked his heart rate and he was significantly bradycardic with what she thought was skipped beats. Since he has been here he has had negative orthostatic changes and it has been sinus bradycardia. We spoke to the drywall sander and he will get an echo and an exercise stress test. The idea for the exercise stress test is to look for chronotropic competence and if that is okay then he will be discharged with outpatient follow-up in an outpatient event monitor.
[2018-07-11 08:03] LABS: ABSOLUTE BASOPHIL COUNT 0 /CUMM (0.0-0.2); ABSOLUTE EOSINOPHIL COUNT 0.1 /CUMM (0.0-0.7); ABSOLUTE GRANULOCYTE CT 4.2 /CUMM (1.4-6.5); ABSOLUTE LYMPH COUNT 0.8 /CUMM (1.2-3.4); ABSOLUTE MONOCYTE COUNT 0.3 /CUMM (0.10-0.60); BASOPHIL % 0.4 % (0.0-2.0); EOSINOPHIL % 2.6 % (0-5); GRANULOCYTE % 77.1 % (42.2-75.2); HEMATOCRIT 36.8 % (42-52); MEAN CORPUSCULAR HGB 33.7 PG (27.0-31.0); MEAN CORPUSCULAR HGB CONC 34.3 G/DL (33.0-37.0); MEAN CORPUSCULAR VOLUME 98.2 FL (80.0-94.0); MEAN PLATELET VOLUME 8.8 FL (7.4-10.4); PLATELET COUNT 169 /CUMM (130-400); RBC DISTRIBUTION WIDTH 12.8 % (11.5-14.5); RED BLOOD CELL CT 3.75 /CUMM (4.70-6.10); WHITE BLOOD CELL COUNT 5.5 /CUMM (4.8-10.8)
--- NOTE | 2018-07-11 09:42 | Cons- Cardiology ---
See Addendum General Information and HPI Consulting Request Date of Consult: 07/11/18 Requested By: Sam IBARRA,Eula Romo Reason for Consult: bradycardia Source of Information: patient, family Exam Limitations: no limitations History of Present Illness: 68-year-old male past medical history of hypertension, prior DVT, prostate cancer receiving Lupron presented initially with weakness and lightheadedness. Patient reports that 2 days ago he was playing golf, and became suddenly fatigued and lightheaded. This recurred once again yesterday. Patient also reports that he has been feeling generally more fatigued of late, with declining exercise tolerance. Patient denies chest pain, palpitations, dyspnea at rest or on exertion, PND/orthopnea, lower extremity swelling. The patient's stated that yesterday before he came to the hospital she checked his pulse, and it was slow. She also felt as if there were "skipped beats." Patient was recently seen by his primary care physician, who did an ECG , and noted the patient had a heart rate in the 40s bpm that was otherwise normal. Patient denies fever/chills, cough, diaphoresis, abdominal pain, diarrhea/ constipation, urinary incontinence. Allergies/Medications Allergies: Coded Allergies: No Known Allergies (07/10/18) Home Med List: Aspirin (Aspirin*) 81 MG TAB.CHEW 1 TAB PO DAILY HEART HEALTH (Reported) Calcium Carbonate/Vitamin D3 (Caltrate 600 + D Tablet) 600 MG-800 TABLET 1 TAB PO DAILY SUPPLEMENT (Reported) Cholecalciferol (Vitamin D3) (Vitamin D3) 400 UNIT TABLET 1 TAB PO DAILY VITAMIN SUPPORT (Reported) Inulin/Chromium Picolinate (Fiber Gummies) 2 GRAM-100 MCG TAB.CHEW 1 CAP PO DAILY SUPPLEMENT (Reported) Losartan (Cozaar) 100 MG TABLET 1 TAB PO DAILY HEART (Reported) Multivit-Min/FA/Lycopen/Lutein (Centrum Silver Tablet) 0.4 MG-300 MCG-250 MCG TABLET 1 TAB PO DAILY VITAMIN SUPPORT (Reported) Oxybutynin Chloride (Ditropan XL) 10 MG TAB.ER.24 1 TAB PO DAILY UNKNOWN ( Reported) Tamsulosin HCl (Flomax) 0.4 MG CAP.ER.24H 1 CAP PO DAILY PROSTATE (Reported) Current Medications: Current Medications Sig/Luis Start time Last Medication Dose Route Stop Time Status Admin Acetaminophen 650 MG Q6P PRN 07/10 2145 AC PO Aspirin 81 MG DAILY 07/11 900 AC PO Enoxaparin Sodium 40 MG DAILY 07/11 900 AC SC Losartan Potassium 100 MG DAILY 07/11 900 AC PO Sodium Chloride 500 ML BOLUS ONE 07/10 1545 DC 07/10 IV 07/10 1644 1558 Tamsulosin HCl 0.4 MG DAILY 07/11 900 AC PO Review of Systems Review of Systems: As per HPI. Otherwise a 10 point review of systems was negative. Past History Travel History Traveled to [place] past 21 day No Medical History Neurological: NONE EENT: NONE Cardiovascular: hypertension Gastrointestinal: NONE Hepatic: NONE Renal: NONE Musculoskeletal: NONE Psychiatric: NONE Endocrine: NONE Blood Disorders: DVT Cancer(s): prostate cancer SIDEROGRAPHER/Reproductive: NONE Surgical History Surgical History: appendectomy Family History Relations & Conditions If Any: MOTHER FH: myocardial infarction, Onset: 60+. Psychosocial History Where Do You Live? Home Who Do You Live With? spouse Primary Language: Hebrew Smoking Status: Never Smoked ETOH Use: occasional use Illicit Drug Use: denies illicit drug use Functional Ability ADLs Independent: dressing, eating, toileting, bathing. Ambulation: independent IADLs Independent: shopping, housework, finances, food prep, telephone, transportation , medication admin. Employment History Employment: Retired Exam & Diagnostic Data Vital Signs and I&O Vital Signs Date Time Temp Pulse Resp B/P B/P Pulse O2 O2 Flow FiO2 Mean Ox Delivery Rate 07/11 0657 98.7 52 18 146/84 96 Room Air 07/10 2116 98.0 62 18 159/74 98 Room Air 07/10 2100 98.5 58 16 116/72 95 Room Air 07/10 1955 98.4 49 16 163/80 99 Room Air 07/10 1712 50 16 147/78 97 Room Air 07/10 1652 58 16 99 Room Air 07/10 1613 56 120/84 07/10 1534 Room Air 07/10 1503 98.8 60 16 128/78 97 Room Air Intake & Output 07/11 1600 07/11 0800 07/11 0000 07/10 1600 07/10 0800 07/10 0000 Intake Total 500 Output Total Balance 500 Intake, IV 500 Patient 83.915 kg 83.915 kg Weight Physical Exam: General: no apparent distress HEENT: NCAT, NO JVD Heart: s1s2, RRR, no MRG Lungs: CTA b/l Abd: soft, nt Ext: no peripheral edema Diagnostic Data EKG Results Personally reviewed, sinus bradycardia 50 bpm, no ST/T-wave normalities, normal TX interval, normal QRS duration CXR Results Unremarkable examination. Other Results Telemetry personally reviewed: Normal sinus rhythm, borderline bradycardia Assessment/Plan Assessment/Plan 1. Lightheadedness/weakness 2. Sinus bradycardia 3. Prostate CA 4. Hypertension The patient's symptoms may be due to symptomatic bradycardia. However other noncardiac etiologies should be considered. TSH was normal. Patient does not have any GI complaints or other symptoms to indicate increased vagal tone. Electrolytes are normal. Avoid AV bekah blockers. please obtain a transthoracic echocardiogram to rule out structural heart disease. Exercise stress ECG to ensure chronotropic competence. If this initial workup is negative, the patient will need an outpatient rhythm monitor. Consult Acknowledgment - Thank you for your consult request.
--- NOTE | 2018-07-11 13:31 | Patient Discharge Instructions ---
Discharge Instructions General Discharge Information You were seen/treated for: Symptomatic Bradycardia You had these procedures: CXR, Cardiac Stress Test Watch for these problems: Chest pain, palpitations, dizziness, blurry vision, Extreme fatigue, cold extremities, or any abnormal symptoms please go to closest ER immediately. Special Instructions: Please follow-up with client leader (Dr. Ibarra) in one week for follow-up echocardiogram, and outpatient rhythm the monitor. Please also follow-up with your PCP in 1 week. Diet Continue normal diet: No Recommended Diet: Heart Healthy Activity Full Activity/No Limits: No Activity Self Limited: Yes Acute Coronary Syndrome Inclusion Criteria At DC or during hospital stay patient has or had the following: ACS DIAGNOSIS No Discharge Core Measures Meds if any: Prescribed or Continued at Discharge Meds if any: NOT Prescribed or Continued at Discharge Congestive Heart Failure Inclusion Criteria At DC or during hospital stay patient has or had the following: CHF DIAGNOSIS No Discharge Core Measures Meds if any: Prescribed or Continued at Discharge Meds if any: NOT Prescribed or Continued at Discharge Cerebrovascular accident Inclusion Criteria At DC or during hospital stay patient has or had the following: CVA/TIA Diagnosis No Discharge Core Measures Meds if any: Prescribed or Continued at Discharge Meds if any: NOT Prescribed or Continued at Discharge Venous thromboembolism Inclusion Criteria VTE Diagnosis No VTE Type NONE VTE Confirmed by (Test) NONE Discharge Core Measures - Per Current guidelines, there needs to be overlap - treatment for the first 5 days of Warfarin therapy. - If discharged on Warfarin prior to 5 days of - overlap therapy, the patient will need to be - assessed for post discharge needs including - *Post discharge parental anticoagulation - *Warfarin and/or parental anticoagulation education - *Follow up date to check INR post discharge At least 5 days overlap therapy as Inpatient No Meds if any: Prescribed or Continued at Discharge Note: Overlap Therapy is Warfarin and Anticoagulant Meds if any: NOT Prescribed or Continued at Discharge
--- NOTE | 2018-07-11 14:31 | Discharge Summary ---
Visit Information Visit Dates Admission Date: 07/10/18 Discharge Date: 07/11/18 Hospital Course Course Attending Physician: Eula Vargas MD Primary Care Physician: Phillip Soto MD Hospital Course: Patient is a 68-year-old male with past medical history of hypertension, prior DVT, and prostate cancer s/p radiation, currently receiving Lupron, who presented to the ED following episodes of weakness and bradycardia. Of note, patient's is a retired nurse, and states that the patient also may have had missed heartbeats when she was taking his pulse. The patient states he only had a mild worsening weakness over the past 3 months, until the day before admission while playing golf, he experienced a weakness and dizziness that made him return home. He denies experiencing DHALIWAL, CP, SOB. The patient was also recently seen by his PCP in evaluation for a cystoscopy, at which time his HR was low 50s, and he was instructed to discontinue his losartan. In the ED, patient was found by EKG to have sinus bradycardia ~50-55bpm, with no complaints at rest. CXR was unremarkable. He was admitted to telemetry for cardiac monitoring. He was negative for orthostatic changes during his hospital stay. There were no events on telemonitor. He was saturating high 90s on room air and had no complaints of dizziness, weakness, chest pain or shortness of breath during his stay. Cardiology saw him and patient took an exercise stress test. Per cardio: Exercise stress ECG was performed today -there were no ischemic changes and he demonstrated good chronotropic competence. Patient instructed to follow with cardiology outpatient for an outpatient event radiographer cardiac catheterization. Patient was given a cardiology referral and advised to followup with his PCP ( Dr. Phillip Soto), CIVIL DESIGN TECHNICIAN (Daniella Khan), hand packer/packager (Dr. Poncho Ibarra), and urologist (Dr. Michael Ibarra). Echocardiogram 07/11/18 Normal global left ventricular size, wall thickness, systolic Function with no obvious regional wall motion abnormalities. Normal Left ventricular ejection fraction visually estimated at 55-60 %. Normal right ventricular size and function. There is mild mitral regurgitation. There is mild tricuspid regurgitation. CXR 07/10/18 Unremarkable examination. Allergies: Coded Allergies: No Known Allergies (07/10/18) Disposition Summary Disposition Principal Diagnosis: Symptomatic Bradycardia Additional Diagnosis: None Discharge Disposition: home or self care Discharge Instructions General Discharge Information Code Status: Full Code Patient's Diet: Heart Healthy Patient's Activity: Self - Limited Follow-Up Instructions/Appts: Please follow up with you PCP, Steel Plate Printer, and Urologist in one week from discharge. Medications at Discharge Discharge Medications: Continue taking these medications: Tamsulosin HCl (Flomax) 0.4 MG CAP.ER.24H 1 Capsule ORAL DAILY Comments: NOT GIVEN IN HOSPITAL. Losartan (Cozaar) 100 MG TABLET 1 Tablet ORAL DAILY Comments: NOT GIVEN IN HOSPITAL. ON HOLD Oxybutynin Chloride (Ditropan XL) 10 MG TAB.ER.24 1 Tablet ORAL DAILY Comments: NOT GIVEN IN HOSPITAL. Aspirin (Aspirin*) 81 MG TAB.CHEW 1 Tablet ORAL DAILY Comments: NOT GIVEN IN HOSPITAL. ON HOLD Inulin/Chromium Picolinate (Fiber Gummies) 2 GRAM-100 MCG TAB.CHEW 1 Capsule ORAL DAILY Comments: NOT GIVEN IN HOSPITAL. Multivit-Min/FA/Lycopen/Lutein (Centrum Silver Tablet) 0.4 MG-300 MCG-250 MCG TABLET 1 Tablet ORAL DAILY Comments: NOT GIVEN IN HOSPITAL. ON HOLD Calcium Carbonate/Vitamin D3 (Caltrate 600 + D Tablet) 600 MG-800 TABLET 1 Tablet ORAL DAILY Comments: NOT GIVEN IN HOSPITAL ON HOLD Cholecalciferol (Vitamin D3) (Vitamin D3) 400 UNIT TABLET 1 Tablet ORAL DAILY Comments: NOT GIVEN IN HOSPITAL. ON HOLD Copies To: Poncho Ibarra MD; Fred IBARRA,Michael [place]; Daniella Khan APRN; Charles IBARRA,Phillip Jarrell
[2018-07-11 14:37] VITALS: BP 126/84
--- NOTE | 2018-07-11 16:51 | ECHOCARDIOGRAM REPORT ---
QIAN PRO Age: 68 : 1950 Gender: M Exam Date: 07/11/2018 12:07 Exam Location: 1 [address] Ht (in): 70 Wt (lb): 185 BSA: 2.05 BP: 146 / 84 Ordering Physician: Andrea Shah MD Referring Physician: Andrea Shah MD Technologist: Doroteo Crane [facility] Room Number: 178 Indications: Weakness Rhythm: Sinus Technical Quality: Good FINDINGS Left Ventricle Normal global left ventricular size, wall thickness, systolic function with no obvious regional wall motion abnormalities. Normal left ventricular ejection fraction visually estimated at 55-60 %. Right Ventricle Normal right ventricular size and function. Right Atrium Normal right atrial size. A possible eustachian valve is seen in the right atrium. Left Atrium Normal left atrial size. Mitral Valve Structurally normal mitral valve. No mitral stenosis. There is mild mitral regurgitation. Aortic Valve Structurally normal trileaflet aortic valve. Normal aortic root dimension. No aortic stenosis. No aortic regurgitation. Tricuspid Valve Structurally normal tricuspid valve. There is mild tricuspid regurgitation. Right ventricular systolic pressure estimated to be within the normal range at 33 mmHg. Pulmonic Valve Structurally normal pulmonic valve. Trace pulmonic regurgitation. Pericardium No pericardial effusion. Great Vessels Normal size aortic root and proximal ascending aorta. CONCLUSIONS Normal global left ventricular size, wall thickness, systolic function with no obvious regional wall motion abnormalities. Normal left ventricular ejection fraction visually estimated at 55-60 %. Normal right ventricular size and function. There is mild mitral regurgitation. There is mild tricuspid regurgitation. Dr. Poncho Ibarra (Electronically Signed) Final Date: 11 July 2018 16:46 MEASUREMENTS (Male / Female) Normal Values 2D ECHO LV Diastolic Diameter PLAX 5.0 cm 4.2 - 5.9 / 3.9 - 5.3 cm LV Systolic Diameter PLAX 2.5 cm 2.1 - 4.0 cm LV Fractional Shortening PLAX 50.0 % 25 - 46 % LV Ejection Fraction 2D Teich 81.1 % IVS Diastolic Thickness 0.9 cm LVPW Diastolic Thickness 1.0 cm LV Relative Wall Thickness 0.4 LVOT Diameter 2.2 cm Aortic Root Diameter 3.1 cm LA Systolic Diameter LX 3.4 cm 3.0 - 4.0 / 2.7 - 3.8 cm LV Ejection Fraction MOD BP 52.3 % >= 55 % LV Cardiac Index MOD BP 1661.5 cm/min LV Diastolic Length 4C 6.4 cm 6.9 - 10.3 cm LV Diastolic Area 4C 25.6 cm LV Diastolic Volume MOD 4C 82.0 cm LV Ejection Fraction MOD 4C 54.9 % LV Stroke Volume MOD 4C 45.0 cm LV Cardiac Index MOD 4C 1625.4 cm/min LV Systolic Length 4C 5.9 cm LV Systolic Area 4C 16.1 cm LV Systolic Volume MOD 4C 37.0 cm LV Ejection Fraction MOD 2C 58.9 % LV Cardiac Index MOD 2C 2022.7 cm/min LV Diastolic Volume 4C AL 86.9 cm 85 - 139 / 69 - 109 cm LV Systolic Volume 4C AL 37.1 cm LV Ejection Fraction 4C AL 57.3 % LV Stroke Volume 4C AL 49.8 cm LV Cardiac Index 4C AL 1799.2 cm/min LV Ejection Fraction 2C AL 62.0 % LV Cardiac Index 2C AL 2174.8 cm/min LA Volume 34.0 cm 18 - 58 / 22 - 52 cm Ascending Aorta Diameter 3.2 cm DOPPLER AV Peak Velocity 126.0 cm/s AV Peak Gradient 6.4 mmHg LVOT Peak Velocity 114.0 cm/s LVOT Peak Gradient 5.2 mmHg AV Area Cont Eq pk 3.4 cm Mitral E Point Velocity 38.5 cm/s Mitral A Point Velocity 58.2 cm/s Mitral E to A Ratio 0.7 MV Deceleration Time 320.0 ms TR Peak Velocity 273.0 cm/s TR Peak Gradient 29.8 mmHg PV Peak Velocity 121.0 cm/s PV Peak Gradient 5.9 mmHg
== END 2018-07-11 14:35 ==
LOC: ERH 14:50 → 1NO 20:16 → ERHI 20:16 → ENRESERV 20:49 → ENTRNSPT 21:30 → EDTRNSPTSTS 21:35 → EDTRNSPT 21:35 → CMPTRNSPT 21:50 → 1NO 21:55 → ENPENDDIS 07-11 13:58 → 1NO 07-11 14:35
PROVIDERS: Physician Assistant Medical; Preventive Medicine Public Health & General Preventive Medicine
DX: R00.1 Bradycardia, unspecified (principal); I10 Essential (primary) hypertension; Z86.718 Personal history of other venous thrombosis and embolism; C61 Malignant neoplasm of prostate; C77.9 Secondary and unspecified malignant neoplasm of lymph node, unspecified; R53.1 Weakness; Z79.82 Long term (current) use of aspirin; R53.83 Other fatigue
CPT/HCPCS: 6020; 36592; 71045; 81001; 82436; 87086; 93005; 93010; 93306; G0378; J1650; J3490; J7040